=== PATIENT | female | born 1995 | race Caucasian/White ===

== ENCOUNTER → 2024-02-28 07:59 | Outpatient (REF) | payer OTHER, SELFPAY | LOC: RAD 07:59 | PROVIDERS: ATTENDING PHYSICIAN Internal Medicine; FAMILY PHYSICIAN Family Medicine | DX: R10.9 Unspecified abdominal pain (principal); R13.19 Other dysphagia; R11.0 Nausea | CPT/HCPCS: 78264; A9541 ==

== ENCOUNTER → 2024-04-03 11:17 | Outpatient (REF) | payer OTHER, SELFPAY | LOC: MRI 3T 11:17 | PROVIDERS: ATTENDING PHYSICIAN Internal Medicine; FAMILY PHYSICIAN Family Medicine | DX: R10.9 Unspecified abdominal pain (principal); R13.19 Other dysphagia; R11.0 Nausea | CPT/HCPCS: 72197; 74183; A9585 ==

== ENCOUNTER 2024-04-12 13:46 | Emergency (ER) | payer OTHER, SELFPAY ==
--- NOTE | 2024-04-12 14:25 | ED.GENMED ---
History of Present Illness
General
Chief Complaint: Abdominal Pain
Source: patient
Exam Limitations: none
Time Seen by Provider: 04/12/24 14:09
History of Present Illness
History of Present Illness:
28-year-old female with history of dysautonomia presents with 3 to 4 days worth of progressively worsening right lower quadrant abdominal pain. She denies it is constant pain made worse with walking. It is a pressure sensation does not radiate to
the back. No urinary symptoms. She thought initially it was an ovarian cyst and was seen by cement storage worker. She had a pelvic exam and was felt not to have a cyst
Here for evaluation of potential appendicitis. She is a prior surgical history of cholecystectomy. She follows with GI. She has been intermittently constipated. No chest pain. Her appetite has been good. No fever or vomiting.
Past History
Past History
ED Past Medical History: Psychiatric (Bipolar disorder)
ED Past Surgical History: None
Social History
Tobacco: Non-smoker
Alcohol: None
Drug: None
Family History
Family History: Other (IBD.)
Phy Exam
Physical Exam
Physical Exam:
General: Well appearing female NAD
HEENT: NC/AT
Heart: RRR, no murmurs
Lungs; CTA bilaterally
Abd: soft, tender to RLQ, mild guarding, no rebound or CVA tenderness
Ext: NO cyanosis or edema
Course
Orders/Labs/Results
Orders:
Orders
04/12/24 14:25
CT Abd/pel W Iv And Oral Contr Urgent
Comment:
Reason For Exam: rlq pain
Iohexol [Omnipaque] See Protocol PO NOW STA
Test Result ONCE
04/12/24 14:45
Complete Blood Count/With Diff Urgent
Comprehensive Metabolic Panel Urgent
HCG, Serum Qualitative Screen Urgent
04/12/24 14:54
Ketorolac [Toradol] 15 mg IV NOW STA
04/12/24 15:53
Urinalysis Reflex To Culture Urgent
Date Specimen was Collected: 04/12/24
Time Specimen was Collected: 15:50
Abnormal Lab Results
04/12/24
14:45
MCH 31.7 H pg
(27.0-31.0)
MPV 11.6 H fL
(7.4-10.4)
BUN 19 H mg/dl
(7-17)
Glucose 101 H mg/dl
(70-99)
Total Protein 6.2 L g/dl
(6.3-8.2)
04/12/24 14:45
04/12/24 14:45
Vital Signs
Initial and Last Documented VS:
Initial Vital Signs
Temp Pulse Resp BP Pulse Ox
98.4 F 73 18 126/86 98
04/12/24 13:50 04/12/24 13:50 04/12/24 13:50 04/12/24 13:50 04/12/24 13:50
Last Documented Vital Signs
Temp Pulse Resp BP Pulse Ox
98.4 F 74 16 121/92 98
04/12/24 13:50 04/12/24 15:19 04/12/24 15:19 04/12/24 15:19 04/12/24 15:19
MDM/Problems Addressed
Differential Diagnosis Includes:
Right lower abdominal pain. Consider appendicitis post ovarian cyst versus torsion versus constipation
Seen already by BAG ADJUSTER felt not to be related to the ovary. Will check labs. CT with oral and IV contrast pending
*Critical Care Note
Total Time (30-74mins, 75-104mins- exclusive of procedures): Not Applicable
Update Note
Update Note:
CT shows right-sided ovarian cyst measuring 3 cm as well as moderate mount of stool to suggest constipation. No signs of appendicitis. Patient reassured. Recommended continued bowel regimen. Stable for discharge with GI follow-up. Offered
magnesium citrate however she states she cannot tolerate it causes too much cramping. She will stick with her normal bowel regimen
ED Attending Note
-
Portions of this chart may have been created with voice recognition software.� Occasional wrong word or��sound alike� substitutions may have occurred due to the inherent limitations of voice recognition software.
Discharge Plan
Departure
Patient Disposition: Home (Routine Discharge)
Date of Disposition: 04/12/24
Time of Disposition: 18:05
Patient with high blood pressure during this ER visit?: No
Discharge Problem:
Abdominal pain
Instructions: Constipation, Adult (DC), Ovarian Cyst (DC)
Prescriptions:
No Action
cetirizine 10 MG tablet
10 mg PO HS
lamotrigine 200 mg tablet
200 mg PO HS
trazodone 50 mg Tablet
50 mg PO HS
famotidine [Pepcid] 40 mg Tablet
40 mg PO HS
valacyclovir 500 mg tablet
500 mg PO HS
meclizine 25 mg tablet
25 mg PO [id number] PRN (Reason: anxiety/vertigo)
nortriptyline 10 mg capsule
10 mg PO HS
norethindrone ac-eth estradiol [06/11 ()] 1-20 mg-mcg tablet
1 tab PO UD
midodrine 2.5 mg tablet
2.5 mg PO TID@0700,1200,1600
clobetasol 0.05 % Ointment
1 applic TOPICAL DAILY
Rx Instructions:
apply topically to genital/rectal area--alternate with estradiol cream
estradiol 0.01 % (0.1 mg/gram) Cream
1 applic vaginal .3 TIMES WEEKLY
Rx Instructions:
apply topically to genital/rectal area - alternate with clobetasol oint
ondansetron 4 mg tablet,disintegrating
4 mg PO TIDPRN PRN (Reason: nausea/GI symptoms)
sertraline 50 mg tablet
25 mg PO HS
naltrexone 1.5 mg Capsule
2.1 mg PO DAILY
Rx Instructions:
Medication is compounded at [facility]
Referrals:
Ashley Lozada MD [Family Provider] -
Activity Restrictions/Additional Instructions:
Continue your normal bowel regimen. Drink plenty of fluids. Return if worse otherwise follow-up with your GI and BAG ADJUSTER.
Interventions
Interventions:
*Risk Screen - Suicide Last Done: 04/12/24 13:53
*General Assessment Last Done: 04/12/24 14:53
*Neglect/Abuse Screening Last Done: 04/12/24 14:53
*ED COVID-19 Vaccine History Last Done: 04/12/24 14:53
OB-Jerhvl-Bmuzsqr[facility] Assessment Last Done: 04/12/24 15:19
Discharge Date and Time
Print Language: IRISH
[2024-04-12] MEDS: TORADOL 15 MG IV (15:08)
[2024-04-12] MEDS: OMNIPAQUE 50 ML PO (15:08)
[2024-04-12 15:16] LABS: ALT (SGPT) 16 U/L (0-35); AST (SGOT) 20 U/L (14-36); Albumin 3.9 g/dl (3.5-5.0); Alkaline Phosphatase 53 U/L (38-126); Blood Urea Nitrogen 19 mg/dl (7-17); Carbon Dioxide 26 mmol/L (22-30); Chloride 102 mmol/L (98-107); Glucose 101 mg/dl (70-99); Potassium 3.9 mmol/L (3.5-5.1); Sodium 138 mmol/L (135-145); Total Bilirubin 0.2 mg/dl (0.2-1.3); Total Protein 6.2 g/dl (6.3-8.2); eGFR > 60.00
[2024-04-12 15:24] LABS: HCG, Serum Qualitative Screen Negative
[2024-04-12 15:26] LABS: % Basophils 0.3 % (0-2); % Eosinophils 0.6 % (0-6); % Immature Granulocytes 0.3 % (0-0.5); % Lymphocytes 23.8 % (20.5-51.1); % Monocytes 6.4 % (1.7-9.3); % Neutrophils 68.6 % (42.2-75.2); Absolute Lymphocytes 1.7 10^3/uL (1.2-3.4); Absolute Monocytes 0.5 10^3/uL (0.1-0.6); Absolute Neutrophils 4.8 10^3/uL (1.4-6.5); Hematocrit 41.5 % (37.0-47.0); Hemoglobin 13.9 g/dL (12.0-16.0); Mean Corp Hgb Conc. 33.5 g/dL (33.0-37.0); Mean Corpuscular Hgb 31.7 pg (27.0-31.0); Mean Corpuscular Volume 94.7 fL (81.0-99.0); Mean Platelet Volume 11.6 fL (7.4-10.4); Nucleated Red Blood Cells % 0 %; Platelet Count 238 10^3/uL (130-400); Red Blood Cell Count 4.38 10^6/uL (4.20-5.40)
[2024-04-12 16:09] LABS: Urine Albumin Negative (Neg - Trace); Urine Bilirubin Negative (Negative); Urine Character Clear (Clear); Urine Color Straw; Urine Glucose Negative (Negative); Urine Ketone Negative (Negative); Urine Leukocyte Negative (Negative); Urine Nitrite Negative (Negative); Urine Occult Blood Negative (Negative); Urine Urobilinogen Negative (Neg - 1+)
== END 2024-04-12 18:13 | disposition home or self-care (01) ==
LOC: EMR 13:46
PROVIDERS: Physician Assistant; EMERGENCY PHYSICIAN Emergency Medicine; FAMILY PHYSICIAN Family Medicine
DX: N83.201 Unspecified ovarian cyst, right side (principal); K59.00 Constipation, unspecified; Z90.49 Acquired absence of other specified parts of digestive tract
CPT/HCPCS: 96374; 99284; 74177; 80053; 81003; 84703; 85025; Q9967

== ENCOUNTER → 2024-04-16 13:58 | Outpatient (REF) | payer OTHER, SELFPAY | LOC: RAD 13:58 | PROVIDERS: ATTENDING PHYSICIAN Obstetrics & Gynecology Gynecology; FAMILY PHYSICIAN Family Medicine | DX: N83.209 Unspecified ovarian cyst, unspecified side (principal) | CPT/HCPCS: 76830; 76856 ==

== ENCOUNTER → 2024-04-24 09:58 | Outpatient (REF) | payer OTHER, SELFPAY | LOC: WDC 09:58 | PROVIDERS: ATTENDING PHYSICIAN Obstetrics & Gynecology Gynecology; FAMILY PHYSICIAN Family Medicine | DX: N63.10 Unspecified lump in the right breast, unspecified quadrant (principal); N63.11 Unspecified lump in the right breast, upper outer quadrant | CPT/HCPCS: 76642; 77062; 77066 ==

== ENCOUNTER 2024-05-21 06:37 | Day surgery (SDC) | payer BC, SELFPAY | END 2024-05-21 11:50 | disposition home or self-care (01) | LOC: GI 06:37 | PROVIDERS: ATTENDING PHYSICIAN Internal Medicine | DX: R10.31 Right lower quadrant pain (principal); K62.5 Hemorrhage of anus and rectum; K64.4 Residual hemorrhoidal skin tags | CPT/HCPCS: 45380; 88305 ==

== ENCOUNTER → 2024-08-04 08:44 | Outpatient (REF) | payer BC, SELFPAY | LOC: MRI 3T 08:44 | PROVIDERS: ATTENDING PHYSICIAN Hospitalist; FAMILY PHYSICIAN Family Medicine | DX: M46.1 Sacroiliitis, not elsewhere classified (principal) | CPT/HCPCS: 72195 ==

== ENCOUNTER → 2024-09-15 06:34 | Outpatient (REF) | payer BC, SELFPAY | LOC: MRI 3T 06:34 | PROVIDERS: ATTENDING PHYSICIAN Anesthesiology Pain Medicine; FAMILY PHYSICIAN Family Medicine | DX: M54.12 Radiculopathy, cervical region (principal); M54.16 Radiculopathy, lumbar region | CPT/HCPCS: 72141; 72148 ==

== ENCOUNTER → 2025-05-17 17:44 | Outpatient (REF) | payer BC, SELFPAY | LOC: PAVMRI 17:44 | PROVIDERS: ATTENDING PHYSICIAN Psychiatry & Neurology Neurology; FAMILY PHYSICIAN Family Medicine | DX: R51.9 Headache, unspecified (principal); R42 Dizziness and giddiness | CPT/HCPCS: 72141 ==